=== PATIENT | male | born 1965 | race Caucasian/White ===

== ENCOUNTER 2016-09-13 13:22 | Outpatient (CLI) | payer BC ==
[2016-09-13 16:52] LABS: Hemoglobin A1c 7.7 % (4.0-6.0)
[2016-09-13 17:01] LABS: Eosinophils 5 % (0-10); Hemoglobin 15.2 g/dL (14.0-18.0); Lymphocytes 62 % (21-51); MDiff Complete? YES; Mean Corpuscular HGB CONC 32.7 g/dL (32.0-36.0); Mean Corpuscular Hemoglobin 29.6 pg (27.0-31.0); Mean Corpuscular Volume 90.6 fl (80.0-94.0); Mean Platelet Volume 6.3 fL (7.4-10.4); Monocytes 5 % (0-10); Neutrophil 28 % (42-75); Platelet Count 266 thou/uL (130-400); RBC Distribution Width 13.7 % (11.5-14.5); Red Blood Cell (RBC) Count 5.13 mill/uL (4.70-6.10); White Blood Cell (WBC) Count 8.2 thou/uL (4.8-10.8)
[2016-09-13 17:08] LABS: ALT (SGPT) 36 U/L (8-55); AST (SGOT) 18 U/L (5-34); Albumin 4.1 g/dL (3.5-5.0); Alkaline Phosphatase 72 U/L (40-150); Anion Gap 17 mmol/L (10-20); BUN (Urea Nitrogen) 12 mg/dL (8.9-20.6); Bilirubin, Total 0.6 mg/dL (0.2-1.2); Calc. Creatinine Clearance 0 mL/min (70-130); Calcium 10.3 mg/dL (7.8-10.44); Carbon Dioxide 29 mmol/L (22-29); Cardiac Risk 5.1 (Less than 4.5); Chloride 98 mmol/L (98-107); Cholesterol 179 mg/dl (< 200 Desired); Estimated GFR-MDRD 75; Globulin 3.2 g/dL (2.4-3.5); Glucose 224 mg/dL (70-105); HDL Cholesterol 35 mg/dL (>60 Neg Risk); LDL Cholesterol, Calculated 86 mg/dL; Potassium 4.5 mmol/L (3.5-5.1); Protein, Total 7.3 g/dL (6.0-8.3); Sodium 139 mmol/L (136-145); Triglycerides 290 mg/dL (Less than 150)
[2016-09-13 17:10] LABS: Vitamin D, 25 Hydroxy 18.2 ng/ml (> 30.0)
[2016-09-13 18:20] LABS: Creatinine, Urine 164.75 mg/dL (63-166); Microalbumin Urine Less than 1.0 mg/dL (0.5-50.0); Microalbumin/Creat Ratio 6.1 mg/g (Less than 30)
== END 2016-09-13 13:23 | disposition home or self-care (01) ==
LOC: LABLEX 13:22
PROVIDERS: ATTEND Family Medicine
DX: E55.9 Vitamin D deficiency, unspecified (principal); E78.1 Pure hyperglyceridemia; E11.9 Type 2 diabetes mellitus without complications; E83.52 Hypercalcemia; I10 Essential (primary) hypertension
CPT/HCPCS: 80053; 80061; 82043; 82306; 83036; 83970; 84443; 85025

== ENCOUNTER 2017-05-12 13:38 | Emergency (ER) | payer OTHER | END 2017-05-12 14:27 | disposition home or self-care (01) | LOC: BURERS 13:38 | DX: I87.8 Other specified disorders of veins (principal); J45.909 Unspecified asthma, uncomplicated; E11.40 Type 2 diabetes mellitus with diabetic neuropathy, unspecified; I10 Essential (primary) hypertension; F41.9 Anxiety disorder, unspecified; F32.9 Major depressive disorder, single episode, unspecified; Z79.4 Long term (current) use of insulin; Z79.899 Other long term (current) drug therapy | CPT/HCPCS: 36416; 99283 ==

== ENCOUNTER 2020-05-04 15:32 | Emergency (ER) | payer BC, OTHER ==
[2020-05-04 16:30] LABS: #Basophils 0.1 thou/uL (0.0-0.2); #Eosinphils 0.1 thou/uL (0.0-0.7); #Monocytes 1.1 thou/uL (0.11-0.59); #Neutrophils 5.9 thou/uL (1.40-6.50); %Basophils 1.1 % (0.0-1.0); %Eosinophils 1.6 % (0.0-10.0); %Lymphocytes 22.2 % (21.0-51.0); %Monocytes 11.4 % (0.0-10.0); %Neutrophils 63.7 % (42.0-75.0); Hemoglobin 14.5 g/dL (14.0-18.0); Mean Corpuscular HGB CONC 32.3 g/dL (32.0-36.0); Mean Corpuscular Hemoglobin 29.4 pg (27.0-31.0); Mean Platelet Volume 5.7 fL (7.4-10.4); Platelet Count 550 thou/uL (130-400); RBC Distribution Width 13.1 % (11.5-14.5); Red Blood Cell (RBC) Count 4.95 mill/uL (4.70-6.10); White Blood Cell (WBC) Count 9.2 thou/uL (4.8-10.8)
[2020-05-04 16:40] LABS: ALT (SGPT) 51 U/L (8-55); AST (SGOT) 42 U/L (5-34); Albumin 3.4 g/dL (3.5-5.0); Alkaline Phosphatase 74 U/L (40-110); Anion Gap 18 mmol/L (10-20); BUN (Urea Nitrogen) 13 mg/dL (8.4-25.7); Bilirubin, Total 0.5 mg/dL (0.2-1.2); CK (CPK) 87 U/L (30-200); Calc. Creatinine Clearance 0 mL/min (70-130); Carbon Dioxide 27 mmol/L (22-29); Chloride 97 mmol/L (98-107); Glucose 289 mg/dL (70-105); Protein, Total 7.4 g/dL (6.0-8.3); Sodium 139 mmol/L (136-145)
[2020-05-04 16:52] LABS: PTT 31.2 sec (22.9-36.1)
[2020-05-04 16:53] LABS: Base Excess-Venous 4.6 mmol/L (-2.0 to 3.0); Bicarbonate (HCO3v) 28.5 mmol/L (22.0-28.0); CO2 Tension (PvCO2) 38.9 mmHg (42.0-51.0); Calcium, Ionized 1.09 mmol/L (1.15-1.33); Chloride 97 mmol/L (98-107); D-Dimer Test 0.81 *mcg/mL (0.27-0.43); Hemoglobin - Calc 15.1 g/dL (14.0-18.0); INR-International Normal Ratio 0.9; Potassium 2.8 mmol/L (3.5-5.1); Prothrombin Time 12.4 sec (12.0-14.7); Sodium 138 mmol/L (138-145); T. Carbon Dioxide 29.7 mmol/L (22.0-28.0); vO2 Saturation-calc 99.8 % (60.0-85.0)
[2020-05-04] MEDS ORDERED: cefTRIAXone\\ROCEPHIN 1 GM VIAL ONE (16:58)
[2020-05-04] MEDS ORDERED: Azithromycin 500 MG VIAL ONE (16:58)
[2020-05-04] MEDS ORDERED: Dexamethasone 10 MG/ML VIAL ONE (16:58)
[2020-05-04] MEDS ORDERED: Sodium Chloride 0.9% 100 ML ONE (17:07)
[2020-05-04] MEDS ORDERED: Potassium Chloride 20 MEQ TAB ONE (17:10)
[2020-05-04 17:36] LABS: SARS-CoV-2 NAA Rapid Test DETECTED (NotDetected)
[2020-05-04 17:55] LABS: Calcium 9.2 mg/dL (7.8-10.44)
[2020-05-04 18:03] LABS: Potassium 2.9 mmol/L (3.5-5.1)
== END 2020-05-04 18:45 | disposition short-term general hospital (02) ==
LOC: BURERS 15:32
DX: U07.1 COVID-19 (principal); J12.89 Other viral pneumonia; E87.6 Hypokalemia; J45.909 Unspecified asthma, uncomplicated; E11.9 Type 2 diabetes mellitus without complications; I10 Essential (primary) hypertension; Z79.84 Long term (current) use of oral hypoglycemic drugs; Z79.899 Other long term (current) drug therapy; Z79.82 Long term (current) use of aspirin
CPT/HCPCS: 0240U; 36415; 71045; 71275; 80053; 82330; 82550; 82803; 83605; 83880; 84484; 85025; 85379; 85610; 85730; 87040; 93005; 96365; 96375; J0456; J0696; J1100; J3490

== ENCOUNTER 2020-09-03 23:08 | Emergency (ER) | payer BC ==
[2020-09-04] MEDS ORDERED: Fentanyl 100 MCG/2 ML VIAL ONE ×2 (00:06→11:01)
[2020-09-04] MEDS ORDERED: Piperacillin/Tazobactam 4.5 GM VIAL ONE ×2 (00:07→09:19)
[2020-09-04] MEDS ORDERED: Ondansetron PF 4 MG/2 ML Vial ONE (00:07)
[2020-09-04] MEDS ORDERED: Ketorolac Tromethamine 30 MG/ML VIAL ONE ×2 (00:07→11:01)
[2020-09-04 00:15] LABS: #Basophils 0.1 thou/uL (0.0-0.2); #Eosinphils 0.1 thou/uL (0.0-0.7); #Lymphocytes 2.7 thou/uL (1.20-3.40); #Monocytes 1.4 thou/uL (0.11-0.59); #Neutrophils 13.1 thou/uL (1.40-6.50); %Basophils 0.6 % (0.0-1.0); %Eosinophils 0.6 % (0.0-10.0); %Lymphocytes 15.5 % (21.0-51.0); %Monocytes 8.1 % (0.0-10.0); %Neutrophils 75.2 % (42.0-75.0); Hemoglobin 15.3 g/dL (14.0-18.0); Mean Corpuscular HGB CONC 31.8 g/dL (32.0-36.0); Mean Corpuscular Hemoglobin 28.9 pg (27.0-31.0); Mean Corpuscular Volume 90.9 fL (78.0-98.0); Mean Platelet Volume 6.7 fL (7.4-10.4); Platelet Count 310 thou/uL (130-400); RBC Distribution Width 13.2 % (11.5-14.5); Red Blood Cell (RBC) Count 5.29 mill/uL (4.70-6.10); White Blood Cell (WBC) Count 17.4 thou/uL (4.8-10.8)
[2020-09-04 00:31] LABS: ALT (SGPT) 24 U/L (8-55); AST (SGOT) 33 U/L (5-34); Albumin 4.1 g/dL (3.5-5.0); Alkaline Phosphatase 83 U/L (40-110); Anion Gap 16 mmol/L (10-20); BUN (Urea Nitrogen) 14 mg/dL (8.4-25.7); Bilirubin, Total 0.5 mg/dL (0.2-1.2); Calc. Creatinine Clearance 0 mL/min (70-130); Calcium 9.9 mg/dL (7.8-10.44); Carbon Dioxide 32 mmol/L (22-29); Chloride 92 mmol/L (98-107); Globulin 3.9 g/dL (2.4-3.5); Glucose 106 mg/dL (70-105); Potassium 3.4 mmol/L (3.5-5.1); Sodium 137 mmol/L (136-145)
[2020-09-04] MEDS ORDERED: Hydrochlorothiazide 25 MG TAB ONE (09:19)
[2020-09-04] MEDS ORDERED: Sodium Chloride 0.9% 100 ML ONE (09:20)
[2020-09-04] MEDS ORDERED: Acetaminophen 500 MG TAB ONE (09:23)
[2020-09-04] MEDS ORDERED: metFORMIN 500 MG TAB PO SCH (09:45)
[2020-09-04] MEDS ORDERED: Metoprolol Tartrate 50 MG TAB PO SCH (09:45)
[2020-09-04] MEDS ORDERED: Gabapentin 300 MG CAP PO SCH (09:45)
[2020-09-04] MEDS ORDERED: Losartan Potassium 50 MG TAB PO SCH (09:45)
[2020-09-04] MEDS ORDERED: DULoxetine 30 MG CAP PO SCH (09:45)
[2020-09-04] MEDS ORDERED: Tamsulosin HCl 0.4 MG CAP PO SCH (09:45)
[2020-09-04] MEDS ORDERED: Vancomycin HCl 1 GM in Sodium Chloride 0.9% 250 ML 250 ML IVPB SCH ×2 (11:30→12:30)
[2020-09-04] MEDS ORDERED: Lantus 1000 UNITS/10 ML VIAL SC SCH (17:00)
== END 2020-09-04 15:35 | disposition short-term general hospital (02) ==
LOC: BURERS 23:08
DX: E11.69 Type 2 diabetes mellitus with other specified complication (principal); M86.9 Osteomyelitis, unspecified; I10 Essential (primary) hypertension; H66.41 Suppurative otitis media, unspecified, right ear; H72.91 Unspecified perforation of tympanic membrane, right ear; Z79.899 Other long term (current) drug therapy
CPT/HCPCS: 36416; 80053; 83605; 85025; 87040; 87070; 87077; 87149; 87186; 87205; 96365; 96366; 96367; 96375; 96376; J1815; J1885; J2405; J2543; J3010; J3370; J3490; J7050